=== PATIENT | male | born 1985 | race Caucasian/White ===

== ENCOUNTER 2016-07-15 17:28 | Emergency (ER) | payer OTHER ==
[2016-07-15] MEDS ORDERED: DEXAMETHASONE 10 MG/ML VIAL PO STA (17:49)
[2016-07-15] MEDS ORDERED: CHERRY SYRUP 10 ML UDC PO ONE (18:00)
[2016-07-15] MEDS ORDERED: DEXAMETHASONE 10 MG/ML VIAL ONE (18:01)
== END 2016-07-15 18:08 | disposition home or self-care (01) ==
DX: L50.9 Urticaria, unspecified (principal)
CPT/HCPCS: 99283; A9270

== ENCOUNTER 2016-10-19 17:28 | Emergency (ER) | payer OTHER ==
[2016-10-19] MEDS ORDERED: diphenhydrAMINE INJ 50 MG/ML VIAL IVP STA (17:55)
[2016-10-19] MEDS ORDERED: METOCLOPRAMIDE 10 MG/2 ML VIAL IVP STA (17:55)
[2016-10-19] MEDS ORDERED: METOCLOPRAMIDE 10 MG/2 ML VIAL IVP ONE (17:58)
[2016-10-19] MEDS ORDERED: diphenhydrAMINE INJ 50 MG/ML VIAL ONE (17:58)
[2016-10-19] MEDS ORDERED: IOPAMIDOL-300 100 ML VIAL IVP ONE (18:47)
== END 2016-10-19 19:18 | disposition home or self-care (01) ==
DX: R51 Headache (principal); H53.8 Other visual disturbances; R11.11 Vomiting without nausea
CPT/HCPCS: 70496; 96374; 96375; 99283; 99284; Q9967